=== PATIENT | male | born 1990 | race Asian ===

== ENCOUNTER → 2017-08-03 | Outpatient (REF) | payer OTHER | LOC: M LAB REF 13:10 | PROVIDERS: ATTEND Otolaryngology | DX: K11.6 Mucocele of salivary gland (principal) ==

== ENCOUNTER → 2017-09-25 | Outpatient (CLI) | payer OTHER ==
--- NOTE | 2017-09-25 09:06 | REP ---
Clinical: Abdominal pain with elevated liver function tests Technique: Boyle scale ultrasound using curved array transducer. Findings: The liver and pancreas are normal in contour, size, and echogenicity without focal hepatic or pancreatic lesions identified. The gallbladder is normal without gallstones, wall thickening or pericholecystic fluid. No biliary ductal dilatation is appreciated, and the common bile duct measures 2.8 mm diameter. The right kidney is normal in reniform shape without hydronephrosis and measures 11.4 x 4.5 x 4.1 cm. No ascites. Visualized portions of the abdominal aorta normal. Impression: Normal right upper quadrant and gallbladder abdominal ultrasound. Signed by Aubrey Grace MD 09/25/2017 08:58 A
== END ==
LOC: M RAD 08:17
PROVIDERS: ATTEND Student in an Organized Health Care Education/Training Program
DX: R94.5 Abnormal results of liver function studies (principal)

== ENCOUNTER → 2018-04-13 | Outpatient (CLI) | payer OTHER ==
[2018-04-13 09:55] LABS: CORTISOL AM 15.3 UG/DL (4.3-22.4)
[2018-04-15 00:07] LABS: ADRENOCORTICOTROPHIC HORMONE 24.5 pg/mL (7.2-63.3)
== END ==
LOC: M LAB 08:33
DX: I95.9 Hypotension, unspecified (principal)
CPT/HCPCS: 82533